=== PATIENT | female | born 1995 | race African-American/Black ===

== ENCOUNTER 2025-08-18 16:12 | Emergency (ER) | payer MEDICAID ==
[~2025-08-18] VITALS: Ht 162.6 cm; Wt 70.0 kg
[2025-08-18 16:28] VITALS: TEMP 37.1
[2025-08-18] MEDS ORDERED: METHYLPREDNISOLONE 40MG/ML INJ IV ONE (16:30)
[2025-08-18 16:38] VITALS: PULSE 100; RESP 18; O2SAT 96
[2025-08-18] MEDS: IPRATROPIUM/ALBUTEROL 0.5-3(2.5)MG/3ML NEB HHN ONE (16:38)
[2025-08-18] MEDS: METHYLPREDNISOLONE SOD SUCC 125MG/2ML (ACT-O-VIAL) IV NR (16:53)
[2025-08-18 17:17] LABS: BASOPHILS % 0.4 % (0.0-2.0); EOSINOPHILS % 12.6 % (0.0-5.0); HEMATOCRIT. 35.3 % (36.0-48.0); HEMOGLOBIN. 12.0 g/dL (12.0-16.0); LYMPHOCYTES % 16.7 % (20.0-50.0); MEAN PLATELET VOLUME 7.9 fl (7.4-10.4); MONOCYTES % 4.3 % (2.0-8.0); NEUTROPHILS % 66.0 % (40.0-76.0); PLATELET 211 x1000/uL (130-400); RED BLOOD CELL COUNT 3.87 mill/uL (4.2-5.4); RED CELL DISTRIBUTION WIDTH 13.9 % (11.6-14.6)
[2025-08-18 18:42] VITALS: PULSE 106; RESP 18; O2SAT 98
[2025-08-18] MEDS: ALBUTEROL (0.083%) 2.5MG/3ML NEB HHN ONE (18:42)
[2025-08-18 20:59] LABS: CREATININE 0.6 mg/dL (0.6-1.0); UREA NITROGEN BLOOD < 5 mg/dL (9-23)
[2025-08-18 21:28] LABS: INFLUENZA TYPE A Presumptive Negative (Pres. Neg.); INFLUENZA TYPE B Presumptive Negative (Pres. Neg.)
[2025-08-19 00:24] VITALS: BP 113/62; PULSE 108; RESP 20; O2SAT 99
== END 2025-08-19 00:45 | disposition short-term general hospital (02) ==
LOC: ER 16:12 → CMPBEDREQ 08-19 00:52
DX: O99.512 Diseases of the respiratory system complicating pregnancy, second trimester (principal); Z3A.22 22 weeks gestation of pregnancy; Z91.010 Allergy to peanuts; Z20.822 Contact with and (suspected) exposure to COVID-19
CPT/HCPCS: 80048; 83880; 85025; 87804 ×2; 36415; 71045; 94640; 93005; 96374; 99285; 87426; J2919; Z7610 ×4